=== PATIENT | female | born 1990 ===

== ENCOUNTER 2018-07-19 11:03 | Outpatient (CLI) | payer OTHER ==
[2018-07-19 13:57] LABS: HB2 TOTAL 14.9 g/dL; HEMOGLOBIN A1C 0.49 g/dL; HEMOGLOBIN A1C % 5.2 % (4.6-6.2)
[2018-07-19 14:05] LABS: THYROID STIMULATING HORMONE 3.45 uIU/mL (0.34-5.60)
[2018-07-19 14:32] LABS: FOLLICLE STIMULATING HORMONE 1.47 mIU/mL
[2018-07-19 14:33] LABS: LUTEINIZING HORMONE 1.61 mIU/mL
[2018-07-20 06:56] LABS: PROGESTERONE 29.1 ng/mL
== END 2018-07-19 23:59 | disposition home or self-care (01) ==
LOC: LAB.N 11:03
PROVIDERS: ATTEND Registered Nurse
DX: Z31.69 Encounter for other general counseling and advice on procreation (principal)
CPT/HCPCS: 36415; 81599; 82627; 82670; 83001; 83002; 83036; 84144; 84402; 84403; 84443

== ENCOUNTER 2018-07-27 08:00 | Outpatient (CLI) | payer OTHER | END 2018-07-27 23:59 | disposition home or self-care (01) | LOC: LAB.N 08:00 | PROVIDERS: ATTEND Registered Nurse | DX: Z31.69 Encounter for other general counseling and advice on procreation (principal) | CPT/HCPCS: 36415; 82947; 84443 ==

== ENCOUNTER 2018-10-27 08:00 | Outpatient (CLI) | payer OTHER | END 2018-10-27 23:59 | disposition home or self-care (01) | LOC: LAB.N 08:00 | PROVIDERS: ATTEND Registered Nurse | DX: E03.9 Hypothyroidism, unspecified (principal) | CPT/HCPCS: 36415; 84443 ==

== ENCOUNTER 2018-11-01 13:08 | Outpatient (CLI) | payer OTHER ==
[2018-11-01] MEDS ORDERED: IOTHALAMATE MEGLUMINE 50 ML VIAL ONE (13:52)
--- NOTE | 2018-11-01 15:25 | XRAY Report ---
Reason: INFERTILITY Procedure Date: 11/01/2018 Accession Number: [id number] / [id number] Procedure: [place] - Hysterosalpingogram CPT Code: FULL RESULT: EXAM: HYSTEROSALPINGOGRAM EXAM DATE: 11/01/2018 01:50 PM. CLINICAL HISTORY: Infertility. COMPARISONS: None. TECHNIQUE: Patient was placed in the lithotomy position. A speculum was utilized to visualize the cervix. The cervical os was cleansed with Betadine swabs and a hysterosalpingography catheter inserted without complication through the cervical canal and the balloon inflated. Under fluoroscopic observation, the endometrial canal was filled with sterile contrast. Multiple spot views were saved for review. Fluoroscopy Time: 48 seconds. Number of fluoroscopy images: 6. FINDINGS: Uterus: The endometrial canal is well distended with contrast and has a smooth normal contour. Tubes: The fallopian tubes fill with contrast without delay bilaterally. They are normal in caliber with smooth contour. No obstruction evident. Contrast spills into the peritoneum bilaterally. Other: None. IMPRESSION: Normal hysterosalpingogram. No tubal obstruction or filling defects. [facility]
== END 2018-11-01 13:09 | disposition home or self-care (01) ==
LOC: DI 13:08
PROVIDERS: ATTEND Registered Nurse
DX: N97.9 Female infertility, unspecified (principal)
CPT/HCPCS: 58340; 74740; Q9961